=== PATIENT | female | born 1965 | race Caucasian/White ===

== ENCOUNTER 2025-02-08 08:14 | Outpatient (CLI) | payer OTHER, SELFPAY ==
--- NOTE | ~2025-02-08 | MMUS_ITS ---
EXAMINATION: MM diagnostic vahe LT w raul, US breast LT limited HISTORY: Follow-up left breast asymmetry TECHNIQUE: Additional 3-D tomosynthesis images of the left breast were performed and synthetic 2-D im ages were generated. CAD analysis was submitted and interpreted. High resolution Limited left breast ultrasound was performed. COMPARISON: Comparison to multiple prior studies sequentially, with oldest reviewed study dated 09/24. BREAST PARENCHYMAL COMPOSITION: Not dense: There are scattered areas of fibroglandular density. FINDINGS: MAMMOGRAPHIC FINDINGS: There are asymmetries in the upper outer quadrant and periareolar locations of the left breast withou t discrete mass. No architectural distortion. No suspicious calcifications. ULTRASOUND: Limited left breast ultrasound: At 12:00, 4 cm from the nipple there is an oval parallel oriented hyp oechoic 4 mm mass without internal vascularity or posterior features, likely benign. There are mildly prominent ducts in the subareolar location. IMPRESSION: 1. Probable benign 4 mm left breast mass at 12:00, 4 cm from the nipple. 2. Recommend 6 month follow-up diagnostic left mammogram and Limited left breast ultrasound BI-RADS category 3, probably benign findings. Reviewed, dictated and finalized at location B. IMPRESSION: 1. Probable benign 4 mm left breast mass at 12:00, 4 cm from the nipple. 2. Recommend 6 month follow-up diagnostic left mammogram and Limited left breas t ultrasound BI-RADS category 3, probably benign findings.
== END 2025-02-08 08:15 | disposition home or self-care (01) ==
LOC: MICIMG 08:15
PROVIDERS: PCP Internal Medicine; Visit Provider Internal Medicine
DX: R92.8 Other abnormal and inconclusive findings on diagnostic imaging of breast (principal)
CPT/HCPCS: 76642; 77061; 77065; G0279